=== PATIENT | female | born 1985 | race Caucasian/White ===

== ENCOUNTER → 2018-06-13 08:43 | Outpatient (CLI) | payer BC, SELFPAY ==
[2018-04-11 15:54] VITALS: BMI 29.4
[2018-06-13 12:09] LABS: Absolute Lymphocyte Count 1.71 X10^3/ul (0.83-4.51); Absolute Neutrophil Count 2.4 X10^3/uL (2.0-7.7); Basophil# 0.04 X10^3/uL; Basophil% 0.8 % (0-1); Eosinophils% 6.1 % (0-5); Hematocrit 39.3 % (37-47); Hemoglobin 12.9 g/dl (12.0-15.0); Lymphocyte # 1.71 X10^3/ul (4.0); Lymphocyte % 34.7 % (19-41); Mean Corp Hgb Conc 32.8 g/gl (32-36); Mean Corpuscular Hgb 29.4 pg (27.0-32.0); Mean Corpuscular Volume 89.5 fL (81-99); Mean Platelet Vol. 11.5 fl (6.2-12.0); Monocyte# 0.49 X10^3/uL; Monocyte% 9.9 % (0-10); Neutrophil # 2.39 X10^3/uL (2.7-7.7); Neutrophil % 48.5 % (47-70); Platelet Count 214 K/mm3 (150-450); RBC Distribution Width CV 12.3 % (11.6-14.6); RBC Distribution Width SD 39.9 fl (35.1-43.9); Red Blood Count 4.39 M/mm3 (4.2-5.4); White Blood Count 4.9 K/mm3 (4.4-11.0)
[2018-06-13 12:12] LABS: POSITIVE COUNT NO; POSITIVE DIFFERENTIAL NO; POSITIVE MORPHOLOGY NO
[2018-06-13 12:41] LABS: Estradiol 126.9 pg/mL; Ferritin 47 ng/mL (8-252); Follicle Stimulating Hormone 2.3 mIU/mL; Iron 127 ug/dL (50-170); Iron Binding Capacity,Total 278 ug/dL (250-450); T4 Free Direct 0.89 ng/dL (0.76-1.46); Thyroid Stim Hormone (TSH) 1.32 uIU/mL (0.358-3.74)
[2018-06-13 12:43] LABS: Vitamin B12 591 pg/mL (211-911); Vitamin D,25 Hydroxy 40.6 ng/mL (29.95-100.01)
[2018-06-15 14:46] LABS: Testosterone Free 1.5 pg/mL (0.0-4.2)
== END ==
PROVIDERS: Family Provider Family Medicine; PCP Family Medicine; Visit Provider Obstetrics & Gynecology
DX: L65.0 Telogen effluvium (principal); N97.9 Female infertility, unspecified
CPT/HCPCS: 82306; 82607; 82670; 82728; 83001; 83540; 83550; 84402; 84439; 84443; 85025

== ENCOUNTER → 2019-10-02 11:54 | Outpatient (CLI) | payer BC, SELFPAY ==
[2018-04-11 15:54] VITALS: BMI 29.4
--- NOTE | 2019-10-02 11:56 | RAD_ITS ---
PROCEDURE: HYSTEROSALPINGOGRAM. REASON FOR EXAM: Female, 34 years old. Infertility. FLUOROSCOPY TIME (if supplied): (0:40) seconds FINDINGS: There is normal opacification of the endometrial cavity. Both fallopian tubes are not opacified. RAD/Salpingogram IMPRESSION: Obliteration fallopian bilaterally. Electronically Signed: Ryan Trent, at 15:31 EDT Tel , Service support ,
== END ==
PROVIDERS: PCP Family Medicine; Referring Provider Obstetrics & Gynecology; Visit Provider Obstetrics & Gynecology
DX: N97.9 Female infertility, unspecified (principal)
CPT/HCPCS: 58340; 74740

== ENCOUNTER → 2019-11-18 16:40 | Outpatient (CLI) | payer SELFPAY ==
[2019-11-18 13:44] VITALS: BMI 29.4
[2019-11-26 04:19] LABS: HPV APTIMA, High Risk Negative (Negative)
== END ==
PROVIDERS: PCP Family Medicine; Referring Provider Obstetrics & Gynecology; Visit Provider Obstetrics & Gynecology
DX: Z12.4 Encounter for screening for malignant neoplasm of cervix (principal)
CPT/HCPCS: 87624; 88175; G0145

== ENCOUNTER → 2021-02-09 14:39 | Outpatient (CLI) | payer BC, SELFPAY | PROVIDERS: PCP Family Medicine; Referring Provider Family Medicine; Visit Provider Family Medicine | DX: Z20.828 Contact with and (suspected) exposure to other viral communicable diseases (principal); Z20.818 Contact with and (suspected) exposure to other bacterial communicable diseases | CPT/HCPCS: 87635; U0005; U0003 ==

== ENCOUNTER 2021-04-17 15:57 | Emergency (ER) | payer BC, SELFPAY ==
[2021-04-17 15:58] VITALS: BP 111/73; PULSE 95; RESP 18; TEMP 37.3; O2SAT 98; BMI 24.7
[2021-04-17 17:13] VITALS: BP 112/74; PULSE 67; RESP 19; O2SAT 98
--- NOTE | 2021-04-17 17:19 | CT_ITS ---
EXAM: CT ANGIOGRAPHY CHEST WITHOUT AND WITH INTRAVENOUS CONTRAST CLINICAL INDICATION: covid 19 pulmonary embolism TECHNIQUE: Helically acquired angiography images were obtained of the chest without and with intravenous contrast. This CT exam was performed using one or more of the following dose reduction techniques: automated exposure control, adjustment of the mA and/or kV according to patient size, and/or use of iterative reconstruction technique. This report was created using [employer] report generation technology. MIP reconstructed images were created and reviewed. CONTRAST: IV 100mL [id number] COMPARISON: None. FINDINGS: PULMONARY ARTERIES: No demonstrated pulmonary embolism or arterial dissection. AORTA: Unremarkable. Normal in caliber. No evidence of dissection. GREAT VESSELS OF AORTIC ARCH: Unremarkable. Normal in caliber. No evidence of dissection. LUNGS AND PLEURAL SPACES: There is bilateral pneumonia. No mass. No pleural effusion or thickening. HEART: Unremarkable. Heart size is normal. No pericardial effusion. No signs of right heart strain, ratio of right ventricle to left ventricle measures less than 1. MEDIASTINUM: Unremarkable. No mediastinal or hilar adenopathy. Esophagus is unremarkable. No hiatal hernia. THYROID: Unremarkable. No thyroid lesions. BONES/JOINTS: There are degenerative findings of the thoracic spine. No suspicious lytic or blastic abnormality. CT/CTA Chest W/WO Contrast IMPRESSION: 1. No demonstrated pulmonary embolism or arterial dissection. 2. There is bilateral pneumonia. Electronically Signed: Zechariah Guzman MD at 18:43 EST , Service support ,
--- NOTE | 2021-04-17 17:20 | EDS_ITS ---
HPI History of Present Illness Chief Complaint: Shortness of Breath Informant: patient Narrative Narrative: 36-year-old female presenting to the emergency room with a chief complaint of COVID-19 and shortness of breath. Patient states that she got sick roughly the 05 April and tested positive on March. She was experiencing mostly GI symptoms and fever. Over the past several days has those symptoms were improving she has began to feel more short of breath than normal. She called her doctor who requested her vital signs and felt that a CT of the chest for pulmonary embolism was indicated. Patient tells me she was unable to get this prior authorization approved and her doctor sent her here to the emergency room. No prior history of DVT or PE. Non-smoker. She was not Covid vaccinated [facility] Medical History (Updated 04/17/21 @ 17:[address] Jitendra Conklin DO) Anxiety and depression Home Medications fluoxetine 20 mg capsule 20 mg PO DAILY 04/11/18 [History Last Taken Unknown] alprazolam 0.5 mg tablet 0.5 mg PO DAILY PRN 02/21/21 [History Last Taken Unknown] tranexamic acid 650 mg tablet 1,300 mg PO TID #60 tab 02/21/21 [Rx Last Taken Unknown] dexamethasone 6 mg PO DAILY #6 tab 04/17/21 [Rx Last Taken Unknown] Allergy/AdvReac Type Severity Reaction Status Date / Time amoxicillin Allergy Mild Other Verified 02/21/21 08:33 penicillin G Allergy Mild Other Verified 02/21/21 08:33 Family History Mother Cancer lung Aunt Cancer lung Grandmother Cancer lung Social History current occupational status: employed current occupation: [employer] Smoking Status: Never smoker alcohol intake: current details: social substance use type: does not use caffeine: Yes what type of physical activity do you participate in: walking seatbelt use: always do you feel safe at home: Yes additional social history: Cynthia Hernandez ROS ROS ED ROS Narrative Fatigue Constitutional Constitutional ED: Reports fever(s); Denies chills or weight loss Eyes Eyes: Denies change in vision or diplopia ENT ENT ED: Denies ear pain, rhinorrhea or sore throat Cardiovascular Cardiovascular: Denies chest pain, orthopnea, palpitations or racing heartbeat Respiratory/Chest Respiratory/Chest: Reports dyspnea; Denies cough or orthopnea Gastrointestinal Gastrointestinal: Reports abdominal pain, diarrhea and nausea; Denies vomiting Genitourinary Genitourinary ED: Denies dysuria, hematuria or urinary frequency Musculoskeletal Musculoskeletal: Reports myalgias; Denies arthralgias Integumentary Denies abscess or rash Neurologic Neurologic: Reports headache(s); Denies weakness Psychiatric Psychiatric: Denies anxiety, depression, suicidal ideation or suicidal thoughts Endocrine Endocrinology: Denies polydipsia, polyphagia or polyuria Allergic/Immunologic Allergic/Immunologic ED: Denies mouth swelling, tongue swelling or urticaria EXAM Physical Exam Const Vital Signs: 04/17/21 15:58 04/17/21 17:13 Temperature 99.2 F H Temperature Source Temporal Pulse Rate 95 67 Respiratory Rate 18 19 H Respiratory Effort Non-Labored Short of Breath Blood Pressure 111/73 112/74 Blood Pressure Mean 85 86 Pulse Ox 98 98 Oxygen Delivery Method Room Air Room Air Positive well nourished and well developed General Appearance ED: well developed HEENT Reports normocephalic, head/scalp atraumatic, TM's clear and moist mucous membranes atraumatic Tympanic Membrane ED: Yes TM's clear Eyes PERRL and EOMs intact bilaterally Neck no lymphadenopathy, supple and no JVD Resp normal respiratory effort and clear to auscultation bilaterally Cardio regular rate, regular rhythm and no murmurs GI normal to inspection, nondistended, normoactive bowel sounds and non-tender Palpation: soft Back/Spine no CVA tenderness and normal ROM Extremity normal to inspection General Extremety ED: Negative for edema General Extremity: Negative for edema Neuro oriented x3 and CN's II-XII intact bilaterally Sensorium / Orientation: alert Motor Exam: strength 5/5 throughout Psych mental status grossly normal Mood & Affect: Negative for depressed or tearful Skin no rashes or lesions noted and no wounds MDM MDM MDM Narrative Medical decision making narrative: CBC and BMP showed a potassium of 3.3. CTA of the chest was obtained which does not demonstrate any pulmonary embolism but does show some mild features of Covid pneumonitis. Should be placed on dexamethasone. Return if worsening or concerns Lab Data Attestation: I reviewed the patient's lab results. Labs: Laboratory Results - last 24 hr 04/17/21 04/17/21 17:38 17:38 WBC 5.5 RBC 4.84 Hgb 14.4 Hct 41.7 MCV 86.2 MCH 29.8 MCHC 34.5 RDW Std Deviation 37.9 RDW Coeff of Aniya 11.9 Plt Count 184 MPV 11.6 Immature Gran % (Auto) 0.400 Neut % (Auto) 57.1 Lymph % (Auto) 32.5 [place] % (Auto) 9.3 Eos % (Auto) 0.5 Baso % (Auto) 0.2 Absolute Neuts (auto) 3.1 Absolute Lymphs (auto) 1.78 Nucleated RBC % 0 Sodium 141 Potassium 3.3 L Chloride 106 Carbon Dioxide 28.0 Anion Gap 7 BUN 8 Creatinine 0.72 Estim Creat Clear Calc 101.12 Est GFR (MDRD) Af Amer 118 Est GFR (MDRD) Non-Af 98 BUN/Creatinine Ratio 11.1 Glucose 93 Calcium 9.3 Radiography Diagnostic Testing: Clinical Impression(s) from Imaging Studies Chest CTA 04/17/21 17:19 IMPRESSION: 1. No demonstrated pulmonary embolism or arterial dissection. 2. There is bilateral pneumonia. Electronically Signed: Zechariah Guzman MD at 18:43 EST , Service support , Discharge Plan Triage Chief Complaint: Shortness of Breath ED Provider: Jitendra Conklin Dx/Rx/DC Orders Clinical Impression: COVID-19 Instructions: Coronavirus Disease 2019 (COVID-19): Caring for Yourself or Others Prescriptions: New dexamethasone 6 MG tablet 6 mg PO DAILY Qty: 6 RF: 0 No Action fluoxetine [Prozac] 20 mg capsule 20 mg PO DAILY RF: 0 alprazolam [Xanax] 0.5 mg tablet 0.5 mg PO DAILY PRNRF: 0 tranexamic acid [Lysteda] 650 mg tablet 1,300 mg PO TID Qty: 60 RF: 2 Primary Care Provider: Veronika Thompson Referrals: Veronika Thompson MD [Primary Care Provider] - As Needed Disposition Disposition: Home, Self Care
[2021-04-17 17:47] LABS: Absolute Lymphocyte Count 1.78 X10^3/uL (0.83-4.51); Absolute Neutrophil Count 3.1 X10^3/uL (2.0-7.7); Basophil# 0.01 X10^3/uL; Basophil% 0.2 % (0-1); Eosinophil# 0.03 X10^3/uL; Eosinophils% 0.5 % (0-5); Hematocrit 41.7 % (37-47); Hemoglobin 14.4 g/dL (12.0-15.0); Lymphocyte # 1.78 X10^3/ul (0.83-4.51); Lymphocyte % 32.5 % (19-41); Mean Corp Hgb Conc 34.5 g/dL (32-36); Mean Corpuscular Hgb 29.8 pg (27.0-32.0); Mean Corpuscular Volume 86.2 fL (81-99); Mean Platelet Vol. 11.6 fl (6.2-12.0); Monocyte# 0.51 X10^3/uL; Monocyte% 9.3 % (0-10); NRBC Flagged by Analyzer 0 % (0-5); Neutrophil # 3.12 X10^3/uL (2.7-7.7); Neutrophil % 57.1 % (47-70); Platelet Count 184 K/mm3 (150-450); RBC Distribution Width CV 11.9 % (11.6-14.6); RBC Distribution Width SD 37.9 fl (35.1-43.9); Red Blood Count 4.84 M/mm3 (4.2-5.4); White Blood Count 5.5 K/mm3 (4.4-11.0)
[2021-04-17 18:00] LABS: Anion Gap 7 (5-15); BUN 8 mg/dL (7-18); BUN/Creat Ratio 11.1 RATIO (10-20); Calcium,Total 9.3 mg/dL (8.5-10.1); Chloride 106 mmol/L (98-107); Creatinine, Serum 0.72 mg/dL (0.55-1.02); EST Glomerular Filtration Rate 98 mL/min (>60); Est Glom Filt Rate - Afr Amer 118 mL/min (>60); Estimated Creatinine Clearance 101.12 ml/min; Glucose 93 mg/dL (74-106); Potassium 3.3 mmol/L (3.5-5.1); Sodium Level 141 mmol/L (136-145)
[2021-04-17] MEDS: dexAMETHasone 4 MG Tablet 6 MG PO (19:19)
[2021-04-17 19:22] VITALS: BP 115/83; PULSE 56; RESP 16; O2SAT 99
== END 2021-04-17 19:22 | disposition home or self-care (01) ==
PROVIDERS: Emergency Provider Emergency Medicine; PCP Family Medicine
DX: U07.1 COVID-19 (principal); J12.82 Pneumonia due to coronavirus disease 2019; Z79.52 Long term (current) use of systemic steroids
CPT/HCPCS: 71275; 80048; 85025; 99284; Q9967; A4216

== ENCOUNTER → 2024-05-26 | Outpatient (CLI) | payer OTHER, SELFPAY ==
[2024-05-28 00:06] LABS: HPV APTIMA, High Risk Negative (Negative)
== END | disposition home or self-care (01) ==
LOC: LABSPEC 11:13
PROVIDERS: PCP Family Medicine; Referring Provider Nurse Practitioner Women's Health; Visit Provider Nurse Practitioner Women's Health
DX: Z12.4 Encounter for screening for malignant neoplasm of cervix (principal)
CPT/HCPCS: 87624; 88175; G0145